=== PATIENT | female | born 2000 ===

== ENCOUNTER 2022-12-11 11:27 | Outpatient (CLI) | payer OTHER | END 2022-12-11 13:45 | disposition home or self-care (01) | LOC: PRENATAL 11:27 | PROVIDERS: ATTEND Obstetrics & Gynecology Maternal & Fetal Medicine | DX: O35.9XX0 Maternal care for (suspected) fetal abnormality and damage, unspecified, not applicable or unspecified (principal); O35.3XX0 Maternal care for (suspected) damage to fetus from viral disease in mother, not applicable or unspecified; Z3A.20 20 weeks gestation of pregnancy ==

== ENCOUNTER 2023-03-05 10:24 | Outpatient (CLI) | payer OTHER | END 2023-03-05 11:17 | disposition home or self-care (01) | LOC: PRENATAL 10:24 | PROVIDERS: ATTEND Obstetrics & Gynecology Maternal & Fetal Medicine | DX: O35.9XX0 Maternal care for (suspected) fetal abnormality and damage, unspecified, not applicable or unspecified (principal); O26.849 Uterine size-date discrepancy, unspecified trimester; O36.8199 Decreased fetal movements, unspecified trimester, other fetus; Z3A.32 32 weeks gestation of pregnancy ==

== ENCOUNTER 2023-04-10 04:57 | Inpatient (IN) | payer OTHER ==
[~2023-04-10] VITALS: Ht 154.9 cm; Wt 73.5 kg
[2023-04-10] MEDS ORDERED: PRENATAL TABLE1 EAC1 PO (05:02)
== END 2023-04-12 15:40 | disposition home or self-care (01) | DRG 807 ==
LOC: LDR 04:57 → OB/GYN 17:09
PROVIDERS: ADMIT Obstetrics & Gynecology; ATTEND Obstetrics & Gynecology
PROC: 10E0XZZ Delivery of Products of Conception, External Approach (ICD-10-PCS; principal; 2023-04-10)
PROC: 4A1HXCZ Monitoring of Products of Conception, Cardiac Rate, External Approach (ICD-10-PCS; 2023-04-10)
DX: O80 Encounter for full-term uncomplicated delivery (principal); Z37.0 Single live birth; Z3A.37 37 weeks gestation of pregnancy; Z20.822 Contact with and (suspected) exposure to COVID-19